=== PATIENT | female | born 1965 | race Caucasian/White ===

== ENCOUNTER 2020-11-30 08:08 | Outpatient (REF) | payer OTHER, SELFPAY ==
--- NOTE | ~2020-11-30 | MM_ITS ---
EXAMINATION: MM SCREENING DIGITAL BREAST TOMOSYNTHESIS, BILATERAL CLINICAL INFORMATION: Screening. Asymptomatic. The lifetime risk of breast cancer based on the Tyrer-Cuzick Model is 7%. COMPARISON: Mammography: 11/24/2019, 08/21/2018, 08/11/2017 TECHNIQUE: Digital breast tomosynthesis is performed in both the craniocaudal and mediolateral oblique views along with computer-aided detection (CAD). Synthesized 2D images are generated from the tomosynthesis. FINDINGS: There are scattered areas of fibroglandular density (ACR BI-RADS breast composition Category b). The left MLO view demonstrates group of calcifications possibly within a 3 mm nodule, 9.5 cm from nipple and beyond field of view on CC view. This represents change from prior exam. The remainder of the left breast is unremarkable. The right breast shows no mass or architectural abnormality or abnormal calcifications. MM/MM tomosynthesis screening BI IMPRESSION: 1. Left: Tight group of calcifications left axilla possibly within a 3 mm nodule. 2. Right: No mammographic evidence of malignancy. ASSESSMENT: BI-RADS 0: Incomplete - Need Additional Imaging Evaluation RECOMMENDATION: 1. Additional views of the left breast (Magnification ML, exaggerated CC). 2. Targeted ultrasound if warranted after review of the additional views. 3. Radiology department staff will contact the patient for additional imaging. This patient's information was entered into a reminder system with a target due date for their next mammogram.
== END 2020-11-30 08:09 | disposition home or self-care (01) ==
LOC: HO.MAMMO 08:08
PROVIDERS: Visit Provider Internal Medicine
DX: Z12.31 Encounter for screening mammogram for malignant neoplasm of breast (principal)
CPT/HCPCS: 77063; 77067

== ENCOUNTER 2020-12-06 08:56 | Outpatient (REF) | payer OTHER, SELFPAY ==
--- NOTE | ~2020-12-06 | MM_ITS ---
EXAMINATION: MM DIAGNOSTIC DIGITAL BREAST TOMOSYNTHESIS, LEFT CLINICAL INFORMATION: Recall from screening for new group of fine calcifications upper left breast on MLO view and beyond field of view on screening CC view. COMPARISON: Mammography: 11/30/2020, 11/24/2019, 08/21/2018 TECHNIQUE: Digital breast tomosynthesis is performed. 2D images are generated from the tomosynthesis. The following views are obtained: Magnification ML, magnification MLO, magnification exaggerated CC, magnification exaggerated rolled CC x2. FINDINGS: There are scattered areas of fibroglandular density (ACR BI-RADS breast composition Category b). The additional views confirm tight group of fine heterogeneous calcifications in the posterior upper outer left breast. Although some of the calcifications overlie fine vessels, many of the calcifications appear nonvascular. This represents new finding from prior exams. Results are discussed with the patient at time of visit. The location may be challenging for stereotactic sampling. Recommend attempt at stereotactic sampling. MM/MM tomosynthesis added views L IMPRESSION: New fine heterogeneous calcifications posterior upper outer left breast. ASSESSMENT: BI-RADS 4: Suspicious RECOMMENDATION: Stereotactic biopsy left breast calcifications. (The location may be challenging for targeting with stereotactic guidance).
== END 2020-12-06 08:57 | disposition home or self-care (01) ==
LOC: HO.MAMMO 08:56
PROVIDERS: Visit Provider Internal Medicine
DX: R92.8 Other abnormal and inconclusive findings on diagnostic imaging of breast (principal)
CPT/HCPCS: 77061; 77065

== ENCOUNTER 2020-12-14 09:53 | Outpatient (REF) | payer OTHER, SELFPAY ==
--- NOTE | ~2020-12-14 | MM_ITS ---
EXAMINATION: STEREOTACTIC TOMOSYNTHESIS-GUIDED VACUUM-ASSISTED BREAST BIOPSY, LEFT SPECIMEN RADIOGRAPH, LEFT POST PROCEDURE DIGITAL MAMMOGRAM, LEFT CLINICAL INFORMATION: Fine tightly grouped heterogeneous calcifications posterior upper outer left breast. COMPARISON: Mammography 11/30/2020, 12/06/2020. TECHNIQUE/PROCEDURE: Informed consent was obtained from the patient after discussion of the benefits, risks, and alternatives to biopsy today. Patient appeared to understand. Gave opportunity for questions. Patient signed consent form. BIOPSY TABLE: The Online 401 Affirm Prone Biopsy System. LESION: Tightly grouped heterogeneous calcifications posterior upper outer left breast. LOCAL ANESTHESIA: 7 mL 1% lidocaine; 10 mL 1% lidocaine with epinephrine. DERMATOTOMY: Single skin jaziel dermatotomy performed. NEEDLE: [employer] Eviva 9-gauge vacuum assisted core biopsy device. APPROACH: lateral medial. TARGETING: Digital breast tomosynthesis used for targeting. CORES: 8. CLIP: [employer] SecurMark T-shaped marker. SPECIMEN RADIOGRAPH: Specimen radiograph is taken in separate room using digital mammography. The index calcifications are in the excised cores. There are numerous calcifications present. POST PROCEDURE UNILATERAL DIGITAL MAMMOGRAM: The post biopsy mammogram is performed in separate room using separate digital mammography equipment from the biopsy procedure. CC and ML views are obtained. There are scattered areas of fibroglandular density (breast composition category: b). The clip marker is in position. The calcifications are markedly decreased at the biopsy site. No gross hematoma. The patient tolerated the procedure well. No immediate complications. Home instructions reviewed with the patient. Final pathology results are pending. MM/MM stereotactic biopsy LT IMPRESSION: 1. Digital tomosynthesis-guided core biopsy left breast with clip placement. 2. Specimen radiograph taken and post procedure mammogram. There is satisfactory positioning of the biopsy clip. 3. Final pathology results pending. An addendum report will be issued.
== END 2020-12-14 09:54 | disposition home or self-care (01) ==
LOC: HO.MAMMO 09:53
PROVIDERS: PCP Internal Medicine; Visit Provider Surgery
DX: R92.1 Mammographic calcification found on diagnostic imaging of breast (principal)
CPT/HCPCS: 19081; 88305; A4648

== ENCOUNTER → 2020-12-28 16:48 | Outpatient (BNVA) | payer OTHER, SELFPAY | PROVIDERS: PCP Internal Medicine; Visit Provider Surgery ==

== ENCOUNTER 2021-12-04 07:23 | Outpatient (REF) | payer OTHER, SELFPAY ==
--- NOTE | ~2021-12-04 | MM_ITS ---
EXAMINATION: MM SCREENING DIGITAL BREAST TOMOSYNTHESIS, BILATERAL CLINICAL INFORMATION: Screening. Asymptomatic. The lifetime risk of breast cancer based on the Tyrer-Cuzick Model is 8%. COMPARISON: Mammography: December 14, 2020 and studies dating back to June 19, 2015 TECHNIQUE: Digital breast tomosynthesis is performed in both the craniocaudal and mediolateral oblique views along with computer-aided detection (CAD). Synthesized 2D images are generated from the tomosynthesis. FINDINGS: There are scattered areas of fibroglandular density (ACR BI-RADS breast composition Category b). There are no significant masses, abnormal calcifications, or other abnormalities. MM/MM tomosynthesis screening BI IMPRESSION: There are no significant changes from prior study. ASSESSMENT: BI-RADS 1: Negative RECOMMENDATION: Routine annual mammography screening. This patient's information was entered into a reminder system with a target due date for their next mammogram.
== END 2021-12-04 07:24 | disposition home or self-care (01) ==
LOC: HO.MAMMO 07:23
PROVIDERS: Visit Provider Internal Medicine
DX: Z12.31 Encounter for screening mammogram for malignant neoplasm of breast (principal)
CPT/HCPCS: 77063; 77067

== ENCOUNTER 2022-12-09 07:55 | Outpatient (REF) | payer OTHER, SELFPAY ==
--- NOTE | ~2022-12-09 | MM_ITS ---
EXAMINATION: MM SCREENING DIGITAL BREAST TOMOSYNTHESIS, BILATERAL CLINICAL INFORMATION: Screening. Asymptomatic. The lifetime risk of breast cancer based on the Tyrer-Cuzick Model is 7%. COMPARISON: Mammography: This study is compared with prior exams dating back to 2019. TECHNIQUE: Digital breast tomosynthesis is performed in both the craniocaudal and mediolateral oblique views along with computer-aided detection (CAD). Synthesized 2D images are generated from the tomosynthesis. FINDINGS: There are scattered areas of fibroglandular density (ACR BI-RADS breast composition Category b). There are no significant masses, abnormal calcifications, or other abnormalities. There is tissue marker present in the left breast from prior benign percutaneous biopsy. MM/MM tomosynthesis screening BI IMPRESSION: No mammographic evidence of malignancy. ASSESSMENT: BI-RADS BI-RADS 2 - Benign Findings RECOMMENDATION: Routine annual mammography screening. 1 year F/U This examination should not preclude the clinical evaluation of a suspicious palpable abnormality. This patient's information was entered into a reminder system with a target due date for their next mammogram.
== END 2022-12-09 07:56 | disposition home or self-care (01) ==
LOC: HO.MAMMO 07:55
PROVIDERS: PCP Internal Medicine; Visit Provider Internal Medicine
DX: Z12.31 Encounter for screening mammogram for malignant neoplasm of breast (principal)
CPT/HCPCS: 77063; 77067

== ENCOUNTER → 2022-12-09 08:00 | Outpatient (BNV) | payer OTHER, SELFPAY | PROVIDERS: PCP Internal Medicine; Visit Provider Radiology Diagnostic Radiology | DX: Z12.31 Encounter for screening mammogram for malignant neoplasm of breast (principal) | CPT/HCPCS: 77063; 77067 ==

== ENCOUNTER 2023-12-15 07:34 | Outpatient (REF) | payer OTHER, SELFPAY ==
--- NOTE | ~2023-12-15 | MM_ITS ---
EXAMINATION: MM SCREENING DIGITAL BREAST TOMOSYNTHESIS, BILATERAL CLINICAL INFORMATION: Screening. Asymptomatic. COMPARISON: Mammography: This study is compared with prior exams dating back to 2019. TECHNIQUE: Digital breast tomosynthesis is performed in both the craniocaudal and mediolateral oblique views along with computer-aided detection (CAD). Synthesized 2D images are generated from the tomosynthesis. FINDINGS: There are scattered areas of fibroglandular density (ACR BI-RADS breast composition Category b). There are no significant masses, abnormal calcifications, or other abnormalities. There is a biopsy tissue marker in the superior aspect of the left breast. MM/MM tomosynthesis screening BI IMPRESSION: No mammographic evidence of malignancy. ASSESSMENT: BI-RADS BI-RADS 2 - Benign Findings RECOMMENDATION: Routine annual mammography screening. 1 year F/U This examination should not preclude the clinical evaluation of a suspicious palpable abnormality. This patient's information was entered into a reminder system with a target due date for their next mammogram.
== END 2023-12-15 07:35 | disposition home or self-care (01) ==
LOC: HO.MAMMO 07:34
PROVIDERS: PCP Internal Medicine; Visit Provider Internal Medicine
DX: Z12.31 Encounter for screening mammogram for malignant neoplasm of breast (principal)
CPT/HCPCS: 77063; 77067

== ENCOUNTER → 2023-12-15 08:00 | Outpatient (BNV) | payer OTHER, SELFPAY | PROVIDERS: PCP Internal Medicine; Visit Provider Radiology Diagnostic Radiology | DX: Z12.31 Encounter for screening mammogram for malignant neoplasm of breast (principal) | CPT/HCPCS: 77063; 77067 ==

== ENCOUNTER 2024-12-20 07:34 | Outpatient (REF) | payer OTHER, SELFPAY ==
--- OUTSIDE RECORDS SUMMARY | 2024-12-20 07:36 | XMS_ITS | Patient Health Record ---
[facility] Address [address] [place] [address] Care Team Providers Care Rent And Miscellaneous Remittance Clerk Name Role Phone Aaron Yanez DO Primary Care Provider Leigh Duron Unavailable [phone] Allergies Allergen (clinical drug ingredient) Drug/Non Drug Allergy documented on EMR Reaction Allergy Type Onset Date Status amoxicillin / clavulanate Augmentin rash/itchy Drug Allergy Active acetaminophen / oxycodone Percocet rash/itchy Drug Allergy Active Reason For Referral No Information Medications Medication SIG (Take, Route, Frequency, Duration) Notes Start Date End Date Status Sertraline HCl Activ e Gabapentin Active Hydroxychloroquine Sulfate Active Fluticasone Propionate Active Problems No Known Problems Plan Of Treatment Pending Test Test Name Order Date [id number] Plate 05/10/2015 Insurance Providers Payer Name Payer Address Payer Phone Subscriber Number Group Number Insured Name Patient Relationship to Insured Coverage Start Date Coverage End Date [facility] [address] [facility] [place] [address] [phone] [id number] Milvia Sifuentes Self - patient is the insured Medical (General) History Medical History History ICD Code Tennis elbow Graves disease Allergies hyperglycemia Hypothyroidism Insomnia Leukopenia Back pain Onychomycosis pernicious anemia Shingles Systemic lupus erythematosus Chicken pox Anemia Arthritis Transfusions Surgical History Surgery Date(Month/Year) complete Rhinoplasty (with Major septal repair) laminectomy with disc removal tubal ligation partial hysterectomy
--- OUTSIDE RECORDS SUMMARY | 2024-12-20 07:36 | XMS_ITS | Clinical Summary ---
Author Organization [facility] Address [address] [place] [address] Phone Care Team Providers Care Retail Security Professional Name Role Phone Carlie Horn MD Primary Care Prov ider Allergies Active Allergy Reactions Criticality Noted Date Comments Amoxicillin-Pot Clavulanate Rash Low 12/06/19 17 Augmentin Oxycodone-Acetaminophen Rash Low 12/05/2016 Percocet Medications meloxicam (MOBIC) 15 mg tablet Take 1 tablet (15 mg total) by mouth 1 (one) time each day. Active cetirizine (ZyrTEC) 10 mg tablet Take 1 tablet (10 mg total) by mouth 1 (one) time each day. 06/30/19 24 Active methocarbamoL (ROBAXIN) 500 mg tablet Take 1 tablet (500 mg total) by mouth. 08/11/19 22 Active gabapentin (NEURONTIN) 300 mg capsule Take 1 capsule (300 mg total) by mouth 2 (two) times a day. 01/11/20 22 Active hydroxychloro quine (PLAQUENIL) 200 mg tablet Take 1 tablet (200 mg total) by mouth 1 (one) time each day. Active fluticasone propionate (FLONASE) 50 mcg/actuation nasal spray INJECT 2 SPRAYS IN EACH NOSTRIL ONCE DAILY 16 g 2 06/29/19 25 Active cyanocobalami n (VITAMIN B-12) 100 mcg tablet TAKE ONE TABLET BY MOUTH EVERY DAY APPOINTMENT DUE TAMRA 90 tablet 11/30/19 25 Active levothyroxine (SYNTHROID, LEVOTHROID) 88 mcg tablet TAKE ONE TABLET BY MOUTH EVERY DAY TAKE AN EXTRA TABLET BY MOUTH ON FRIDAY. 8 tablets a week 32 tablet 11 12/03/19 Active cyclobenzapri ne (FLEXERIL) 10 mg tablet Take 1 tablet (10 mg total) by mouth. 08/18/19 025 Discontinued(Th erapy completed) minoxidiL (LONITEN) 2.5 mg tablet Take 0.5 tablets (1.25 mg total) by mouth 1 (one) time each day. 05/09/20 025 Discontinued( erapy completed) clindamycin (CLEOCIN) 300 mg capsule Take 1 capsule (300 mg total) by mouth every 8 (eight) hours. 08/24/19 025 Discontinued( erapy completed) ibuprofen (ADVIL,MOTRIN ) 800 mg tablet Take 1 tablet (800 mg total) by mouth every 8 (eight) hours if needed. 08/24/19 025 Discontinued( erapy completed) estradioL (VIVELLE-DOT) 0.0375 mg/[address] 1 PATCH TOPICALLY 2 TIMES A WEEK FOR 24 HOURS 12/13/19 025 Discontinued( erapy completed) cyanocobalami n (VITAMIN B-12) 100 mcg tablet TAKE ONE TABLET BY MOUTH EVERY DAY. APPOINTMENT DUE TAMRA 90 tablet 08/31/19 025 Discontinued levothyroxine (SYNTHROID, LEVOTHROID) 88 mcg tablet TAKE ONE TABLET BY MOUTH EVERY DAY TAKE AN EXTRA 1/2 TABLET BY MOUTH ON FRIDAY 32 tablet 11/02/19 025 Discontinued(Re order) levothyroxine (SYNTHROID, LEVOTHROID) 88 mcg tablet TAKE ONE TABLET BY MOUTH EVERY DAY TAKE AN EXTRA 1/2 TABLET BY MOUTH ON FRIDAY 32 tablet 11 12/02/19 025 Discontinued(Re order) Active Problems Problem Noted Date Diagnosed Date Atypical squamous cells of u ndetermined significance (ASCUS) on Papanicolaou smear of cervix 04/09/2023 Vaginal intraepithelial neoplasia grade 2 2022 Neck pain 06/12/2021 Cervical spondylolysis 10/31/2020 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 Drug-induced leukopenia ([facility] V24) 01/10/2017 Onychomycosis 12/23/2016 Overview (02/18/2024): [facility] Insomnia 12/23/2016 Overview (02/18/2024): 05/13/2017 Home Sleep Study did not reveal sleep apnea. Anxiety 12/23/2016 Lateral epicondylitis (tennis elbow) 12/23/2016 Overview (02/18/2024): R elbow Osteopenia 12/23/2016 Degenerative disc disease, cervical 12/23/2016 Overview (02/18/2024): [facility] Hypothyroidism 12/05/2016 Pernicious anemia 12/05/2016 RA (rheumatoid arthritis) ([facility] V24, [facility] V28) 12/05/2016 Overview (02/18/2024): [facility] Lupus (systemic lupus erythe matosus) ([facility] V24, [facility] V28) 12/05/2016 Overview (02/18/2024): SLE type, Dr. Brady Allergic rhinitis 12/05/2016 Encounters Date Type Department Care Team Description 12/03/2024 Telephone Endocrinology - [id number] [place] [address] Johanny Marinelli PA 12/01/2024 11:30 AM EDT Office Visit Endocrinology - [address] [phone] Johanny Marinelli PA Hypothyroidism, unspecified type (Primary Dx) from Last 3 Months Immunizations Name Administration Dates Next Due Influenza Quadravalent, MDCK , 0.5ml, preservative free (Flucelvax) 6mo and older 02/10/2019,02/28/2017 Influenza trivalent, 0.5mL, preservative free (Fluarix; FluLaval; Fluzone) ages 6mo and older (Afluria) 3 years and older 03/31/2015 Influenza trivalent, with pr eservative (Fluzone; Afluria) 6mo and older 02/08/2018,03/19/2016,03/02/2014 Pneumococcal conjugate 13 va lent (Prevnar 13, PCV13) 2mo and older 03/31/2015 Tdap Tetanus diptheria acell ular pertussis (Boostrix; Adacel) 7yo and older 06/26/2016,03/20/2012 Zoster recombinant (Shingrix ) 19yo and older 05/22/2019,03/19/2019 Surgical History Surgery Date Site/Laterality Comments APPENDECTOMY PROCEDURE: HISTORICAL APPENDECTOMY SECTION PROCEDURE: HISTORICAL DELIVERY TUBAL LIGATION PROCEDURE: HISTORICAL TUBAL LIGATION BACK SURGERY 2004 PROCEDURE: HISTORICAL BACK SURGERY; COMMENT: lumbar spine, disc prosthesis L5-S1 HYSTERECTOMY 2010 PROCEDURE: HISTORICAL HYSTERECTOMY; COMMENT: partial COLONOSCOPY 2015 PROCEDURE: HISTORICAL COLONOSCOPY; COMMENT: normal, f/u 2025. No path report, did not document in HM OTHER SURGICAL HISTORY PROCEDURE: HISTORY OTHER; COMMENT: Complete rhinoplasty w/ major septal repair FOOT SURGERY 2011 PROCEDURE: HISTORICAL FOOT SURGERY; COMMENT: s/p excision of R foot calcaneal spur, s/p R foot endoscopic fasciotomy Dr. Fuentes Medical History Medical History Date Comments Hypothyroidism 12/05/2016 DX:Hypothyroidis m RA (rheumatoid arthritis) (C MS/HCC V24, CMS/HCC V28) 12/05/2016 DX:RA (rheumatoid arthritis) (HCC) Lupus 12/05/2016 DX:Lupus; COMMEN T: Dr. Brady Allergic rhinitis 12/05/2016 DX:Allergic rh initis Insomnia 12/23/2016 DX:Insomnia LONDON (obstructive sleep apnea) 12/23/2016 DX :LONDON (obstructive sleep apnea); COMMENT: Not using CPAP 06/2015 - home sleep study 2016 did not show sleep apnea Pernicious anemia 12/05/2016 DX:Pernicious anemia Anxiety 12/23/2016 DX:Anxiety Lateral epicondylitis (tennis elbow) 12/23/2016 DX:Lateral epicondylitis (tennis elbow); COMMENT: R elbow Osteopenia 12/23/2016 DX:Osteopenia Onychomycosis 12/23/2016 DX:Onychomycosis ; COMMENT: [facility] Degenerative disc disease, cervical 12/23/2016 DX:Degenerative disc disease, cervical; COMMENT: intervertebral Drug-induced leukopenia (CMS/HCC V24) 01/10/2017 DX:Drug-induced leukopenia (HCC) DEANNA II (vulvar intraepitheli al neoplasia II) 11/16/2018 DX:DEANNA II (vulvar intraepith elial neoplasia II); COMMENT: S/p laser ablation 11/2018 Family History Medical History Relation Name Comments Obesity Daughter No Known Problems Father Diabetes Mother HTN, spinal cor d inj, irreg heart beat Hypertension Sister 1 colon polyps; t hyroid issues Diabetes Sister 2 Celiac disease Son Prostate cancer Uncle Relation Name Status Comments Daughter Alive Father Alive Mother Sister 1 Sister 2 Son Alive Uncle Alive Social History Tobacco Use Types Packs/Day Years Used Date Smoking Tobacco: Former Cigarettes Smokeless Tobacco: Never Tobacco Cessation:Counseling Given: Not Answered Alcohol Use Standard Drinks/Week Comments Yes 0 (1 standard drink = 0.6 oz pur e alcohol) Comments No Sex and Gender Information Value Date Recorded Sex Assigned at Not on file Legal Sex Female 6:46 PM EST Gender Identity Not on file Sexual Orientation Not on file Obstetrics History Last Filed Vital Signs Vital Sign Reading Time Taken Comments Blood Pressure 124/84 12/01/2024 11:52 AM EDT C Pulse 66 12/01/2024 11:52 AM EDT Temperature 36.1 C (96.9 F) 12/01/2024 11:52 AM EDT Respiratory Rate - - Oxygen Saturation - - Inhaled Oxygen Concentration - - Weight 72.3 kg (159 lb 6.4 oz) 12/01/2024 11:52 AM EDT Height 157.5 cm (5' 2 ) 12/01/2024 11:52 AM EDT Body Mass Index 29.15 12/01/2024 11:52 AM EDT Plan of Treatment Upcoming Encounters Date Type Department Care Team (Late st Contact Info) Description 12/01/2025 7:30 AM EDT Office Visit [facility] [address] [place] [phone] Johanny Marinelli PA [address] [place] [address] Health Maintenance Due Date Last Done Comments COVID-19 Vaccine (#1) 02/15/1970 Pneumococcal Vaccine: 50+ Years (2 of 2 - PPSV23) 03/31/2016 03/31/2015 HIV Screening 04/26/2022 Hepatitis C Screening 04/26/2022 Social Influencers of Health Screening 04/26/2022 Depression Screening 05/19/2024 Breast Cancer Screening 12/14/2024 Influenza Vaccine (#1) 2025 9, 02/08/2018, 02/28/2017, Additional history exists Cervical Cancer Screening: Pap Smear 03/19/2026 02/08/2020 DTaP,Tdap,and Td Vaccines (3 - Td or Tdap) 06/26/2026 06/26/2016, 03/20/2012 Colorectal Cancer Screening: Colonoscopy 06/06/2028 Cholesterol Screening (Lipid Panel) 11/02/2028 11/03/2023 RSV Immunization Adult Patients (1 - 1-dose 75+ series) 2038 Zoster Vaccines Completed 05/22/2019, 03/19/2019 HIB Vaccines Aged Out No longer eligi ble based on patient's age to complete this topic HPV Vaccines Aged Out No longer eligi ble based on patient's age to complete this topic Hepatitis A Vaccines Aged Out No long er eligible based on patient's age to complete this topic Hepatitis B Vaccines Aged Out No long er eligible based on patient's age to complete this topic IPV Vaccines Aged Out No longer eligi ble based on patient's age to complete this topic MMR Vaccines Aged Out No longer eligi ble based on patient's age to complete this topic Meningococcal ACWY Vaccine Aged Out N o longer eligible based on patient's age to complete this topic Meningococcal B Vaccine Aged Out No l onger eligible based on patient's age to complete this topic RSV Immunization Patients Under 20 months Aged Out No longer eligible based on patient's age to complete this topic Varicella Vaccines Aged Out No longer eligible based on patient's age to complete this topic Procedures Procedure Name Priority Date/Time Associated Diagnosis Comments TRIIODOTHYRONINE FREE Routine 12/01/2024 12:13 PM EDT Hypothyroidism, unspecified type FREE THYROXINE WITH REFLEX TO FREE TRIIODOTHYRONINE Routine 12/01/2024 12:13 PM EDT Hypothyroidism, unspecified type THYROID STIMULATING HORMONE WITH REFLEX TO FREE T4 AND FREE T3 Routine 12/01/2024 12:13 PM EDT Hypothyroidism, unspecified type PAP SMEAR Routine 02/08/2020 from Last 3 Months or Most Recently Relevant to Health Maintenance Results * (ABNORMAL) Thyroid stimulating hormone with reflex to free t4 and free t3 (12/01/2024 12:13 PM EDT) TSH 8.54(H) 0.40 - 4.00 mcIU/mL LAB CHEMISTRY METHOD 12/01/2024 5:05 PM EDT [facility] Blood Venous blood specimen / Unknown Venipuncture / Unknown 12/01/2024 12:13 PM EDT 12/01/2024 12:13 PM EDT Johanny ESPINAL LAB BLOOD ORDERABLES Final Result Performing Organization Address [facility]/ZIP Co de Phone Number [facility] [address] [place] [address], [place] [phone] * Free thyroxine with reflex to free triiodothyronine (12/01/2024 12:13 PM EDT) Free T4 1.20 0.70 - 1.80 ng/dL LAB CHEMISTRY METHOD 12/01/2024 5:59 PM EDT [facility] Blood Venous blood specimen / Unknown Venipuncture / Unknown 12/01/2024 12:13 PM EDT 12/01/2024 12:13 PM EDT us Johanny ESPINAL LAB BLOOD ORDERABLES Final Result [facility] [address] [place] [address], [place] [phone] * Triiodothyronine free (12/01/2024 12:13 PM EDT) T3, Free 294 230 - 420 pcg/dL LAB CHEMISTRY METHOD 12/01/2024 6:35 PM EDT [facility] Blood Venous blood specimen / Unknown Venipuncture / Unknown 12/01/2024 12:13 PM EDT 12/01/2024 12:13 PM EDT Johanny ESPINAL LAB BLOOD ORDERABLES Final Result Performing Organization Address [facility]/ZIP Co de Phone Number [facility] [address] [place] [address], [place] [phone] * Pap smear (02/08/2020) 02/08/2020 Narrative HISTORICAL TESTING LAB RESULTING AGENCY - 02/11/2020 7:35 AM EDT [id number] THINPREP PAP, IMAGED: NEGATIVE FOR SQUAMOUS INTRAEPITHELIAL LESION AND MALIGNANCY . WILLIAM NEGRO(ASCP) (CASE ELECTRONICALLY SIGNED 02 10 2020) RESULT OF APTIMA HIGH RISK HPV ASSAY: HIGH RISK HPV: NEGATIVE (SEROTYPES 16,18,31,33,35,39,45,51,52,56,58,59,66,68) COMPLETED ON 2020-02-09 ADEQUACY: SATISFACTORY ENDOCERVICAL/TRANSFORMATION ZONE COMPONENT ABSENT. SOURCE: THINPREP PAP HPV ANY DX: REFLEX 16 AND 18, CERVICAL, IMAGED CLINICAL INFORMATION: HPV ANY DIAGNOSIS. POS H/O DEANNA II, PAP07/2018 NEG HPV, PT HAS HAD HYSTERECTOMY. Z12.4 us Paula Walsh DO LAB CYTOLOGY ORDERABLES Final Result HISTORICAL TESTING LAB RESULTING AGENCY from Last 3 Months or Most Recently Relevant to Health Maintenance Insurance [facility] Care Teams Retail Security Professional Relationship Specialty Start Date End Date Carlie Horn MD [address] [place] [phone] PCP - General Internal Medicine 06/16/24
--- OUTSIDE RECORDS SUMMARY | 2024-12-20 07:36 | XMS_ITS ---
Author Name [facility] Organization Unknown Encounters Encounter Type Encounter Reason Primary Diagnosis Location Date Ambulatory [facility] 02/27/2024 Care Team Organization Name Specialty Phone Email Start Date End Da te [facility] 09/11/2024 [facility] Carlie Burnett Primary [facility] 07/24/2022 01/05/2024 [facility] Margie Stewart Primary Care 03/26/2022
--- OUTSIDE RECORDS SUMMARY | 2024-12-20 07:36 | XMS_ITS | Clinical Summary ---
Author Organization [facility] Address [address] [place], [place] [id number] Care Team Providers Care General Road Supervisor Name Role Phone Unavailable Primary Care Provider Unavailabl e Allergies Active Allergy Reactions Criticality Noted Date Comments Amoxicillin-Pot Clavulanate Rash Low 12/06/19 17 Oxycodone-Acetaminophen Rash Low 12/05/2016 Medications Medication Sig Dispensed Refills Start Date End Date Status cyclobenzaprine (FLEXERIL) 5 MG tablet Take 1 tablet (5 mg total) by mouth 3 (three) times a day as needed for muscle spasms. 90 tablet 0 10/31/2020 Active cetirizine (ZyrTEC) 10 MG tablet Take 10 mg by mouth daily. 0 Active gabapentin (NEURONTIN) 300 MG capsule Take 1 capsule by mouth daily. 0 Active hydroxychloroquine (PLAQUENIL) 200 MG tablet Take 1 tablet by mouth daily. 0 Active meloxicam (MOBIC) 15 MG tablet Take 1 tablet by mouth daily. 0 Active fluticasone (FLONASE) 50 MCG/ACT nasal spray spray or apply 50 mcg inside Nose. 0 06/09/2019 Active cyclobenzaprine (FLEXERIL) 10 MG tablet Take 10 mg by mouth. 0 08/17/2020 Active methocarbamol (ROBAXIN) 500 MG tablet Take 1 tablet (500 mg total) by mouth 3 (three) times a day as needed (muscle spasms). 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 Social History Tobacco Use Types Packs/Day Years Used Date Smoking Tobacco: Never Smokeless Tobacco: Never Alcohol Use Standard Drinks/Week Comments Yes 0 (1 standard drink = 0.6 oz pur e alcohol) social Sex and Gender Information Value Date Recorded Sex Assigned at Not on file Gender Identity Not on file Sexual Orientation Not on file Job Start Date Occupation Industry Not on file Not on file Not on file Last Filed Vital Signs Vital Sign Reading Time Taken Comments Blood Pressure 140/81 08/10/2021 7:17 AM EDT Pulse 75 08/10/2021 7:17 AM EDT Temperature 36.4 C (97.5 F) 08/10/2021 7:17 AM EDT Respiratory Rate - - Oxygen Saturation 100% 08/10/2021 7:17 AM EDT Inhaled Oxygen Concentration - - Weight 71.2 kg (157 lb) 08/10/2021 7:17 AM EDT Height 157.5 cm (5' 2 ) 08/10/2021 7:17 AM EDT Body Mass Index 28.72 08/10/2021 7:17 AM EDT Plan of Treatment Health Maintenance Due Date Last Done Comments Hepatitis C Screening 1965 COVID-19 Vaccine (#1) 1963 Depression Screening 1975 Preventative Health Evaluation 1981 Cervical Cancer Screening (Pap Smear) 02/15/1984 Colon Cancer Screening (Colonoscopy) 02/15/2008 Breast Cancer Screening (Mammogram) 2013 Influenza Vaccine (#1) 2025 9, 02/08/2018, 02/28/2017, Additional history exists DTap / Tdap / Td (3 - Td or Tdap) 06/26/2026 06/26/2016, 03/20/2012 RSV Adult > 60+ Yrs or (1 - 1-dose 75+ series) 2038 Pneumococcal Vaccine Aged Out 03/31/2015 No long er eligible based on patient's age to complete this topic Shingrix-Zoster Vaccine Completed 05/22/2019, 03/19 Hepatitis B Vaccines Aged Out No long er eligible based on patient's age to complete this topic RSV Ped < 20 months Aged Out No longe r eligible based on patient's age to complete this topic Insurance Payer Benefit Plan / Group Subscriber ID Effective Dates Phone Address [facility] [id number] 2019-Present [address] [facility] [address] [place] [address] HMO
== END 2024-12-20 07:35 | disposition home or self-care (01) ==
LOC: HO.MAMMO 07:34
PROVIDERS: PCP Internal Medicine; Visit Provider Internal Medicine
DX: Z12.31 Encounter for screening mammogram for malignant neoplasm of breast (principal)
CPT/HCPCS: 77063; 77067

== ENCOUNTER → 2024-12-20 07:45 | Outpatient (BNV) | payer OTHER, SELFPAY | PROVIDERS: PCP Internal Medicine; Visit Provider Internal Medicine | DX: Z12.31 Encounter for screening mammogram for malignant neoplasm of breast (principal) | CPT/HCPCS: 77063; 77067 ==